=== PATIENT | female | born 1975 | race Caucasian/White ===

== ENCOUNTER 2017-02-04 03:41 | Emergency (ER) | payer OTHER ==
[~2017-02-04] VITALS: Ht 152.4 cm; Wt 72.0 kg
[2017-02-04 03:45] VITALS: BP 149/97; PULSE 67; RESP 22
[2017-02-04 04:10] LABS: BASOPHILS % (AUTO) 0.4 % (0-3); EOSINOPHILS % (AUTO) 0.3 % (0-5); Mean Corpuscular Hemoglobin 29.3 pg (27.0-35.0); Mean Corpuscular Volume 85.1 fL (81-100); NEUTROPHILS % (AUTO) 85.2 % (40-74); Platelet Count 373 bil/L (150-400)
[2017-02-04] MEDS ORDERED: Multivitamin w/Vit K Inj 10 ML, Thiamine Inj 100 MG, Folic Acid Inj 1 MG, Magnesium Sul... IV ONE ×5 (04:33)
[2017-02-04] MEDS ORDERED: Ondansetron 2 mg/mL 2 mL Inj IVPUSH PRN (04:35)
[2017-02-04] MEDS ORDERED: HYDROmorphone 0.5 mg/0.5 mL iSecure Syringe IVPUSH PRN (04:35)
[2017-02-04] MEDS ORDERED: FOLIC ACID IV ONE (04:36)
[2017-02-04] MEDS ORDERED: THIAMINE IV ONE (04:36)
[2017-02-04] MEDS ORDERED: [UNRECOGNIZED DRUG - OTHER] IV ONE (04:36)
[2017-02-04] MEDS ORDERED: MAGNESIUM SULFATE IV ONE (04:36)
[2017-02-04 04:40] LABS: Magnesium 2.2 mg/dL (1.6-2.6)
[2017-02-04] MEDS ORDERED: Multivit-Miner-Folic Acid-Iron Tablet PO ONE (04:40)
--- NOTE | 2017-02-04 05:15 | ED.REPORT ---
HPI-Abd Pain F 40 and Over Date of Service Feb 04, 2017 ED Provider: Brayan Deal MD Patient is a 41 year old female with a history of daily alcohol use who presents to the ED complaining of LUQ abdominal pain that began at 9pm yesterday evening. She admits to nausea, vomiting, and decreased urination since that time. Patient states that she has been unable to keep down any fluids since onset. She denies shortness of breath, chest pain, fever, or dysuria. The patient denies a history of pancreatitis, gallbladder disease,/ or having symptoms like this previously. The patient admits that she drinks hard cider daily but "not too much". Patient consumed alcohol last night. She denies any illicit drug use. Nursing Notes Stated Complaint: LEFT SIDE PAIN Chief Complaint: Female Abdominal Pain Nursing Notes Reviewed: Yes Allergies: Uncoded Allergies: AMOXICILLIN (Allergy, Unknown, 02/04/17) PENICILLIN (Allergy, Unknown, 02/04/17) General Time Seen by MD: 04:33 Chief Complaint Abdominal pain Hx Obtained From: Patient Arrived By: Walk-in Sudden in Onset?: Yes Onset Occurred: 9 - 12 hours ago Symptom Duration: Since onset Location: : LUQ Quality: Painful Severity: Current: Moderate Severity: Maximum: Severe Recent Healthcare: No recent doctor visit, No recent hospitalization Similar Sx Previous: No Past Medical History Past Medical History denies Past Surgical History Reports: Tubal ligation Smoking History Unknown if Ever Smoker Social History Alcohol Use: 1-3 per day Drug Use: Denies drug use, THC Other Social History: Good social support, Local resident Ambulatory Status Independent Review of Systems Constitutional: Denies: Fever Respiratory: Denies: Shortness of breath Cardiovascular: Denies: Chest pain GI: Reports: Abdominal pain, Nausea, Vomiting Female: Reports: Urination decreased, Denies: Dysuria Complete sys rev & neg: except as marked. Physical Exam Vital Signs Vital Signs (First) Date Time Temp Pulse Resp B/P Pulse Ox O2 Delivery O2 Flow Rate FiO2 02/04/17 03:45 36.9 67 22 149/97 Room Air 02/04/17 06:48 99 Initial VS: Reviewed, Vital signs abnormal Head / Eyes: Atraumatic, Normocephalic, PERRL ENT: Conjunctiva normal, No scleral icterus Neck: Supple, Full range of motion Extremities: No swelling, No tenderness Skin: Warm, Dry, No cyanosis Neurologic: Alert, Oriented, Nonfocal Psychiatric: Mood/affect normal, Behavior normal, Normal thought content General/Constitutional: Awake, Alert, No acute distress Distress / Hydration: Positive: Dehydration mild does not smell of EtOH Respiratory / Chest: No respiratory distress Cardiovascular: Heart rate NL, Regular rhythm Abdomen: Soft, No guarding, No rebound Tenderness/Guarding/Rebound: Positive: Tender epigastric Back: No midline vertebral tend, No CVA tenderness Interpretation & Diagnostics Lab Results Interpretation Result Diagram: 02/04/17 0400 02/04/17 0400 Test 02/04/17 04:00 02/04/17 04:10 White Blood Count 12.4th/mm3 (3.8-10.1) Red Blood Count 5.77mil/mm3 (3.90-5.20) Hemoglobin 16.9g/dL (12.0-15.6) Hematocrit 49.1% (35.0-46.0) Mean Corpuscular Volume 85.1fL (81-100) Mean Corpuscular Hemoglobin 29.3pg (27.0-35.0) Mean Corpuscular Hemoglobin Concent 34.4% (32.0-37.0) Red Cell Distribution Width 13.3% (12.3-15.4) Platelet Count 373bil/L (150-400) Neutrophils (%) (Auto) 85.2% (40-74) Lymphocytes (%) (Auto) 9.9% (14-46) Monocytes (%) (Auto) 4.0% (4-12) Eosinophils (%) (Auto) 0.3% (0-5) Basophils (%) (Auto) 0.4% (0-3) Sodium Level 137mEq/L (134-144) Potassium Level 4.5mEq/L (3.5-5.2) Chloride Level 99mEq/L (97-108) Carbon Dioxide Level 21mmol/L (18-29) Blood Urea Nitrogen 14mg/dL (6-24) Creatinine 0.77mg/dL (0.57-1.00) Estimat Glomerular Filtration Rate 119mL/min (>59) Glucose Level 152mg/dL (60-99) Calcium Level 9.7mg/dL (8.5-10.1) Magnesium Level 2.2mg/dL (1.6-2.6) Total Bilirubin 0.3mg/dL (0.0-1.2) Aspartate Amino Transf (AST/SGOT) 22U/L (0-50) Alanine Aminotransferase (ALT/SGPT) 18U/L (0-32) Alkaline Phosphatase 67U/L (25-150) Total Protein 7.9g/dL (6.4-8.4) Albumin 4.4g/dL (3.4-5.0) Lipase 26U/L (13-60) Hold Urine Received (Received) Lab Results Interpretation: Mildly elevated white count, elevated H&H. Re-Eval/Medical Decision Med Decision/Clinical Course The cause of the abdominal pain is not certain at this point. She is a daily drinker of [place] [employer]. She appeared somewhat dehydrated. Her labs showed no significant abnormalities with the exception of a very mild elevation of white blood count and some hemoconcentration. She was treated with Protonix and normal saline with improvement. At this time I see no evidence of serious or surgical illness and no indications for abdominal CT scan. She is discharged in much improved condition. It was recommended that she cut back on her drinking. She will follow up with her primary doctor. Re-Evaluation/Progress : Time of Eval: 06:21 Patient Status: Condition improved Re-Evaluation/Progress Note: Rechecked the patient, who states that she feels improved. Discussedher labs results. She was advised to stop drinking. Patient understands and agrees with the plan to be discharged home. Discharge instructions and follow-up discussed. All questions were addressed. Return to the ED warnings given. Counseled Regarding: Diagnosis, Lab results, Need for follow-up, When/why to return to ED Discharge & Departure Primary Impression: Abdominal pain Abdominal location: epigastric Qualified Code: R10.13 - Epigastric pain Disposition: Home Discharge Condition All VS Reviewed: Yes Condition: Stable Patient Instructions: Acute Abdominal Pain (ED), Gastritis (ED) Additional Instructions: There is no evidence at this time of serious illness. Labs are normal. Recommend omeprazole 20 mg by mouth daily to help reduce acid production. Avoid alcohol, it can be toxic to the stomach lining. Follow-up with your regular doctor as needed for persistent symptoms. If you continue have upper abdominal pain he will need an ultrasound to make sure you do not have gallstones. Referrals: Elroy Theodore MD (Family) Scribe Attestation Portions of this note were transcribed by Ignacia Garner. I, Dr. Deal personally performed the history, physical exam and medical decision-making; I reviewed and confirmed the accuracy of the information in the transcribed note. Signed by: Keanu Mayes, 02/04/2017 0611 copies to: Elroy Theodore MD, Howard L MD Feb 04, 2017 05:15 Ignacia Garner Feb 04, 2017 05:33
[2017-02-04] MEDS ORDERED: Pantoprazole 4 mg/mL 10 mL Inj IVPUSH ONE (05:35)
[2017-02-04 06:48] VITALS: BP 155/101; PULSE 80; RESP 18; O2SAT 99
== END 2017-02-04 06:36 | disposition home or self-care (01) ==
LOC: SED 03:41
DX: R10.13 Epigastric pain (principal); R11.2 Nausea with vomiting, unspecified; R39.198 Other difficulties with micturition; F10.20 Alcohol dependence, uncomplicated; Z88.0 Allergy status to penicillin
CPT/HCPCS: 36415; 80053; 81025; 83690; 83735; 85025; 96365; 96366; 96375; 99285; J1170; J2405; J3475; J7030